=== PATIENT | female | born 1955 | race Caucasian/White ===

== ENCOUNTER 2023-04-06 13:21 | Outpatient (CLI) | payer MEDICARE, SELFPAY ==
--- NOTE | ~2023-04-06 | MM_ITS ---
EXAMINATION: MM stereotactic bx RT, MM post biopsy diagnostic RT, MM stereotactic specimen RT DATE: 04/06/2023 14:49 (accession [id number]), 04/06/2023 14:50 (accession [id number]), 04/06 14:49 (accession [id number]) INDICATION: Indeterminate right breast. Stereotactic core biopsy is requested evaluate for malignancy . TECHNIQUE AND FINDINGS: The risks and potential benefits of the procedure were discussed with the patient including bleeding and infection. A time out was performed to verify the patient's name, date of and site of proce dure to be performed. The patient was placed in the prone position with the right breast in lateral m edial compression, and the area of interest was localized and targeted utilizing digital imaging with stereotaxis. After sterile preparation of the skin, three of 1% lidocaine were utilized for local anesthesia at th e skin puncture site and 18 of 1% lidocaine with epinephrine were utilized for deeper local anesthesi a about the biopsy site. A 9G [employer] vacuum assisted biopsy needle was advanced to the level of the ca lcification of interest from a lateral approach utilizing stereotactic guidance and a total of six ti ssue core biopsies were obtained. A specimen radiograph demonstrates that the calcifications of interest are included within the tissue cores. A tissue marker clip was then placed at the biopsy site. The needle was removed and hemostas is was achieved. A sterile bandage was applied. The patient tolerated procedure well and there was no evidence of immediate complication. The patient was given verbal instructions to return to the [facility] in the event of severe breast pain or rapid breast enlargement. Tissue cores were sub mitted to surgical pathology for histologic analysis. A 2-view right unilateral digital mammogram was obtained post procedure and this demonstrates that th e tissue marker clip is in expected position. IMPRESSION: 1. Successful stereotactic biopsy of calcifications in the lower inner right breast, followed by tiss ue marker clip placement. Reviewed, dictated and finalized at location A. IMPRESSION: 1. Successful stereotactic biopsy of calcifications in the lower inner right br east, followed by tissue marker clip placement. IMPRESSION: 1. Successful stereotactic biopsy of calcifications in the lower inner right br east, followed by tissue marker clip placement.
== END 2023-04-06 13:22 | disposition home or self-care (01) ==
DX: R92.8 Other abnormal and inconclusive findings on diagnostic imaging of breast (principal)
CPT/HCPCS: 19081; 77065; 88305; A4648